=== PATIENT | female | born 1960 | race African-American/Black ===

== ENCOUNTER 2016-02-29 17:48 | Inpatient (IN) | payer BC ==
--- NOTE | 2016-02-29 18:30 | Emergency Department Report ---
Chief Complaint: Abdominal Pain Stated Complaint: STOMACH PAIN/VOMITING Time Seen by Provider: 02/29/16 18:26 - HPI History of Present Illness: Patient here reports abdominal pain and nausea and vomiting. She denies any fever or chills. Denies any urinary burning frequency or urgency. She said the pain started yesterday in her mid upper abdomen and left lower quadrant of abdomen. Pain is 6 out of 10. Denies any diarrhea. - ROS Review of Systems: all Systems are negative unless stated in HPI above. - Exam Vital Signs: Vital Signs 02/29/16 17:55 Temperature 98.8 F Pulse Rate 89 Respiratory 18 Rate Blood Pressure 159/93 O2 Sat by Pulse 97 Oximetry Physical Exam: Gen: This is a 55-year-old female well-nourished well-developed in no acute distress. Abdomen: Tender to palpate to mid abdomen and left lower quadrant. No Guarding or rebound tenderness. Normal bowel sounds in all quadrants MSE screening note: Focused history and physical exam performed. Due to findings the following was ordered:see mdm ED Medical Decision Making - Medical Decision Making Medical decision making: Patient seen by provider in triage area. Appropriate protocol activated and patient to main ED to be seen by physician. ED Disposition for MSE Condition: Stable Instructions: Abdominal Pain (ED)
[2016-02-29 18:56] LABS: Basophils % (Auto) 0.3 % (0.0-1.8); Eosinophils % (Auto) 0.5 % (0.0-4.3); Hemoglobin 15.2 gm/dl (10.1-14.3); Mean Corpuscular HGB Conc 33 % (30-34); Mean Corpuscular Hemoglobin 28 pg (28-32); Mean Corpuscular Volume 86 fl (79-97); Platelet Count 297 K/mm3 (140-440); Red Blood Count 5.34 M/mm3 (3.65-5.03); Red Cell Distribution Width 13.7 % (13.2-15.2); White Blood Count 13.4 K/mm3 (4.5-11.0)
[2016-02-29 19:10] LABS: Alanine Aminotransferase 16 units/L (7-56); Albumin 4.5 g/dL (3.9-5); Albumin/Globulin Ratio 1.3 %; Alkaline Phosphatase 81 units/L (35-129); Anion Gap 19 mmol/L; Bilirubin,Total 0.8 mg/dL (0.1-1.2); Blood Urea Nitrogen 16 mg/dL (7-17); Calcium 9.4 mg/dL (8.4-10.2); Carbon Dioxide 28 mmol/L (22-30); Chloride 96.6 mmol/L (98-107); Glucose 112 mg/dL (65-100); Lipase 23 units/L (13-60); Potassium 3.9 mmol/L (3.6-5.0); Sodium 140 mmol/L (137-145)
[2016-02-29 19:11] LABS: Bilirubin,Direct < 0.2 mg/dL (0-0.2); Bilirubin,Indirect 0.6 mg/dL
[2016-02-29 19:14] LABS: Bacteria,Urine 1+ /HPF (Negative); Bilirubin,Urine NEG (Negative); Blood,Urine SM (Negative); Ketones,Urine 20 mg/dL (Negative); Leukocyte Esterase,Urine LG (Negative); Mucus,Urine FEW /HPF; Nitrite,Urine NEG (Negative); Urobilinogen,Urine < 2.0 mg/dL (<2.0)
[2016-02-29] MEDS ORDERED: MORPHINE IV ONE (21:35)
[2016-02-29] MEDS ORDERED: ZOFRAN IV ONE (21:35)
[2016-02-29] MEDS ORDERED: PEPCID IV ONE (21:35)
--- NOTE | 2016-02-29 21:36 | Emergency Department Report ---
ED Abdominal Pain HPI - General Chief Complaint: Abdominal Pain Stated Complaint: STOMACH PAIN/VOMITING Time Seen by Provider: 02/29/16 18:33 Source: patient Mode of arrival: Ambulatory Limitations: No Limitations - History of Present Illness Initial Comments: Primary care Dr.: Dr. Jones This is a 55-year-old female, previously unknown to me. May have a past medical history of diverticulosis/diverticulitis. She presents to the ER complaining of abdominal pain. The abdominal pain started in the suprapubic and left lower quadrant region, and radiated up to her left lateral abdominal region and into her epigastric region. The pain started yesterday. It is sharp. It increases with palpation and range of motion. Decreases with rest. Positive nausea and vomiting. Positive dysuria. The patient denies chest pain per se, but does complain of mild epigastric discomfort. This does not radiate to the back, arms or neck. There is no diaphoresis. There is no leg pain. There is no leg swelling. No recent trips greater than 4 hours. No recent hospital admissions. MD Complaint: abdominal pain -: Gradual Location: LLQ, epigastric, L flank Radiation: epigastric, L flank Severity: moderate Quality: cramping, aching Consistency: intermittent Improves With: rest Worsens With: movement Associated Symptoms: nausea, dysuria - Related Data Home Medications Medication Instructions Recorded Confirmed Last Taken Montelukast [Singulair] 10 mg PO QPM 06/15/15 02/29/16 Unknown Previous Rx's Medication Instructions Recorded Last Taken Type Ciprofloxacin [Ciprofloxacin ORAL 500 mg PO Q12H #20 ml 06/15/15 Unknown Rx LIQ] HYDROcodone/APAP 5-325 [[place] 1 each PO Q4HR PRN #15 tablet 06/15/15 Unknown Rx 5/325] Ibuprofen [Motrin] 600 mg PO Q6H PRN #20 tablet 06/15/15 Unknown Rx metroNIDAZOLE [Flagyl] 500 mg PO Q8HR #21 tablet 06/15/15 Unknown Rx Allergies Allergy/AdvReac Type Severity Reaction Status Date / Time No Known Allergies Allergy Verified 06/15/15 07:52 ED Review of Systems ROS: Stated complaint: STOMACH PAIN/VOMITING Other details as noted in HPI Constitutional: malaise, other Eyes: denies: vision change ENT: denies: epistaxis Respiratory: see HPI Cardiovascular: as per HPI Gastrointestinal: abdominal pain Genitourinary: denies: urgency, dysuria Musculoskeletal: back pain Skin: denies: lesions Neurological: weakness. denies: headache Psychiatric: anxiety ED Past Medical Hx - Past Medical History Hx Asthma: Yes - Social History Smoking Status: Never Smoker Substance Use Type: Alcohol - Medications Home Medications: Home Medications Medication Instructions Recorded Confirmed Last Taken Type Ciprofloxacin [Ciprofloxacin ORAL 500 mg PO Q12H #20 ml 06/15/15 02/29/16 Unknown Rx LIQ] HYDROcodone/APAP 5-325 [[place] 1 each PO Q4HR PRN #15 tablet 06/15/15 02/29/16 Unknown Rx 5/325] Ibuprofen [Motrin] 600 mg PO Q6H PRN #20 tablet 06/15/15 02/29/16 Unknown Rx Montelukast [Singulair] 10 mg PO QPM 06/15/15 02/29/16 Unknown History metroNIDAZOLE [Flagyl] 500 mg PO Q8HR #21 tablet 06/15/15 02/29/16 Unknown Rx ED Physical Exam - General Limitations: No Limitations General appearance: alert, in no apparent distress - Head Head exam: Present: atraumatic, normocephalic - Eye Eye exam: Present: normal appearance, EOMI. Absent: nystagmus - ENT ENT exam: Present: normal exam, normal orophraynx, mucous membranes moist, normal external ear exam - Neck Neck exam: Present: normal inspection, full ROM. Absent: tenderness, meningismus - Respiratory Respiratory exam: Present: normal lung sounds bilaterally. Absent: respiratory distress, wheezes, rales, rhonchi, stridor, chest wall tenderness - Cardiovascular Cardiovascular Exam: Present: regular rate, normal rhythm, normal heart sounds. Absent: bradycardia, tachycardia, irregular rhythm, systolic murmur, diastolic murmur, rubs, gallop - GI/Abdominal GI/Abdominal exam: Present: soft, tenderness, normal bowel sounds. Absent: distended, guarding, rebound, rigid, pulsatile mass - Extremities Exam Extremities exam: Present: normal inspection, full ROM, normal capillary refill. Absent: tenderness, pedal edema, joint swelling, calf tenderness - Back Exam Back exam: Present: normal inspection, full ROM. Absent: tenderness, CVA tenderness (R), CVA tenderness (L), muscle spasm, paraspinal tenderness, vertebral tenderness - Neurological Exam Neurological exam: Present: alert, oriented X3, other (Extraocular movements intact. Tongue midline. No facial droop. Facial sensation intact to light touch in the V1, V2, V3 distribution bilaterally. 5 and 5 strength in 4 extremities.. Sensation is intact to light touch in 4 extremities.). Absent: motor sensory deficit - Psychiatric Psychiatric exam: Present: normal affect, normal mood - Skin Skin exam: Present: warm, dry, intact, normal color. Absent: rash ED Course Vital Signs 02/29/16 02/29/16 03/01/16 17:55 22:45 02:47 Temperature 98.8 F 100.2 F H Pulse Rate 89 82 82 Pulse Rate [ Brachial] Respiratory 18 16 20 Rate Blood Pressure 159/93 121/61 Blood Pressure [Left Arm] Blood Pressure 123/72 [Left] O2 Sat by Pulse 97 94 100 Oximetry 03/01/16 03/01/16 03/01/16 02:50 02:55 03:00 Temperature Pulse Rate 77 71 74 Pulse Rate [ Brachial] Respiratory 18 18 18 Rate Blood Pressure 124/60 123/66 125/58 Blood Pressure [Left Arm] Blood Pressure [Left] O2 Sat by Pulse 98 98 99 Oximetry 03/01/16 03/01/16 03/01/16 03:15 03:30 03:45 Temperature Pulse Rate 60 57 L 57 L Pulse Rate [ Brachial] Respiratory 18 16 16 Rate Blood Pressure 116/49 123/63 126/64 Blood Pressure [Left Arm] Blood Pressure [Left] O2 Sat by Pulse 99 98 97 Oximetry 03/01/16 03/01/16 03/01/16 04:00 04:15 04:30 Temperature Pulse Rate 60 59 L 62 Pulse Rate [ Brachial] Respiratory 16 17 17 Rate Blood Pressure 124/62 127/65 119/63 Blood Pressure [Left Arm] Blood Pressure [Left] O2 Sat by Pulse 98 98 96 Oximetry 03/01/16 03/01/16 03/01/16 04:45 05:00 06:11 Temperature 99 F 98.5 F Pulse Rate 66 66 Pulse Rate [ Brachial] Respiratory 16 16 20 Rate Blood Pressure 118/64 116/60 Blood Pressure 110/61 [Left Arm] Blood Pressure [Left] O2 Sat by Pulse 96 99 94 Oximetry 03/01/16 03/01/16 03/01/16 08:00 08:04 17:00 Temperature 98.8 F 98.2 F Pulse Rate Pulse Rate [ 78 63 Brachial] Respiratory 18 18 Rate Blood Pressure Blood Pressure 114/59 154/70 [Left Arm] Blood Pressure [Left] O2 Sat by Pulse 94 94 98 Oximetry 03/01/16 03/02/16 23:17 00:47 Temperature 98.2 F 98.2 F Pulse Rate Pulse Rate [ 67 99 H Brachial] Respiratory 20 20 Rate Blood Pressure Blood Pressure 148/67 180/81 [Left Arm] Blood Pressure [Left] O2 Sat by Pulse 98 99 Oximetry - Reevaluation(s) Reevaluation #1: 02/29/16 23:06 Differential diagnosis: Gastritis, pancreatitis, pyelonephritis, colitis, diverticulitis, acute coronary syndrome Assessment and plan: 55-year-old female with migratory abdominal pain that started in the left lower quadrant, then moved to the left lateral aspect of the abdominal region and now epigastric. She is somewhat tender in all of the aforementioned. She also endorses irritative urinary symptoms. Her urinalysis suggested urinary tract infection. There are no pulmonary embolus or DVT risk factors, she is low risk by well's criteria. I think acute coronary syndrome is very unlikely, her symptoms have been present for greater than 8 hours, troponin is negative 1 (as per the [employer] clinical policy, myocardial infarction may be excluded with 1 set of cardiac enzymes if symptoms have been present for greater than 8 hours.) She was treated symptomatically. Her EKG was morphologically within normal limits, she is low risk by [place] score, and she is low risk by heart score. A CT scan of the abdomen and pelvis has been performed, the interpretation is currently pending. Reevaluation #2: 02/29/16 23:30 ct scan shows llq smegalian hernia, with proximal ductal obstruction. Radiologist is uncertain if the patient is incarcerated versus strangulated. Nasogastric tube is ordered. Lactic acid is ordered. Gen. surgery was paged. Reevaluation #3: 02/29/16 23:37 The general surgeon, Dr earl. is going to take the patient to the operating room. Requests antibiotic therapy. Medical decision-makin-year-old female with incarcerated versus strangulated hernia with leukocytosis, tenderness, small bowel obstruction required emergent surgical intervention. ED Medical Decision Making - Lab Data Result diagrams: 03/01/16 06:04 03/01/16 06:04 Vital Signs 02/29/16 02/29/16 17:55 22:45 Temperature 98.8 F Pulse Rate 89 82 Respiratory 18 16 Rate Blood Pressure 159/93 Blood Pressure 123/72 [Left] O2 Sat by Pulse 97 94 Oximetry Lab Results 02/29/16 02/29/16 02/29/16 Range/Units 18:35 18:35 18:35 WBC 13.4 H (4.5-11.0) K/mm3 RBC 5.34 H (3.65-5.03) M/mm3 Hgb 15.2 H (10.1-14.3) gm/dl Hct 46.0 H (30.3-42.9) % MCV 86 (79-97) fl MCH 28 (28-32) pg MCHC 33 (30-34) % RDW 13.7 (13.2-15.2) % Plt Count 297 (140-440) K/mm3 Lymph % (Auto) 11.1 L (13.4-35.0) % [place] % (Auto) 5.8 (0.0-7.3) % Eos % (Auto) 0.5 (0.0-4.3) % Baso % (Auto) 0.3 (0.0-1.8) % Lymph # 1.5 (1.2-5.4) K/mm3 [place] # 0.8 (0.0-0.8) K/mm3 Eos # 0.1 (0.0-0.4) K/mm3 Baso # 0.0 (0.0-0.1) K/mm3 Seg Neutrophils % 82.3 H (40.0-70.0) % Seg Neutrophils # 11.0 H (1.8-7.7) K/mm3 Sodium 140 (137-145) mmol/L Potassium 3.9 (3.6-5.0) mmol/L Chloride 96.6 L (98-107) mmol/L Carbon Dioxide 28 (22-30) mmol/L Anion Gap 19 mmol/L BUN 16 (7-17) mg/dL Creatinine 1.0 (0.7-1.2) mg/dL Estimated GFR 57 ml/min BUN/Creatinine Ratio 16.00 % Glucose 112 H (65-100) mg/dL Calcium 9.4 (8.4-10.2) mg/dL Total Bilirubin 0.8 (0.1-1.2) mg/dL Direct Bilirubin < 0.2 (0-0.2) mg/dL Indirect Bilirubin 0.6 mg/dL AST 19 (5-40) units/L ALT 16 (7-56) units/L Alkaline Phosphatase 81 (35-129) units/L Troponin T (0.00-0.029) ng/mL Total Protein 8.0 (6.3-8.2) g/dL Albumin 4.5 (3.9-5) g/dL Albumin/Globulin Ratio 1.3 % Amylase 70 (27-131) units/L Lipase 23 (13-60) units/L Urine Color (Yellow) Urine Turbidity (Clear) Urine pH (5.0-7.0) Ur Specific [place] (1.003-1.030) Urine Protein (Negative) mg/dL Urine Glucose (UA) (Negative) mg/dL Urine Ketones (Negative) mg/dL Urine Blood (Negative) Urine Nitrite (Negative) Urine Bilirubin (Negative) Urine Urobilinogen (<2.0) mg/dL Ur Leukocyte Esterase (Negative) Urine WBC (Auto) (0.0-6.0) /HPF Urine RBC (Auto) (0.0-6.0) /HPF U Epithel Cells (Auto) (0-13.0) /HPF Urine Bacteria (Auto) (Negative) /HPF Ur Transition Epith Cell /HPF Urine Mucus /HPF 02/29/16 02/29/16 Range/Units 18:35 18:41 WBC (4.5-11.0) K/mm3 RBC (3.65-5.03) M/mm3 Hgb (10.1-14.3) gm/dl Hct (30.3-42.9) % MCV (79-97) fl MCH (28-32) pg MCHC (30-34) % RDW (13.2-15.2) % Plt Count (140-440) K/mm3 Lymph % (Auto) (13.4-35.0) % [place] % (Auto) (0.0-7.3) % Eos % (Auto) (0.0-4.3) % Baso % (Auto) (0.0-1.8) % Lymph # (1.2-5.4) K/mm3 [place] # (0.0-0.8) K/mm3 Eos # (0.0-0.4) K/mm3 Baso # (0.0-0.1) K/mm3 Seg Neutrophils % (40.0-70.0) % Seg Neutrophils # (1.8-7.7) K/mm3 Sodium (137-145) mmol/L Potassium (3.6-5.0) mmol/L Chloride (98-107) mmol/L Carbon Dioxide (22-30) mmol/L Anion Gap mmol/L BUN (7-17) mg/dL Creatinine (0.7-1.2) mg/dL Estimated GFR ml/min BUN/Creatinine Ratio % Glucose (65-100) mg/dL Calcium (8.4-10.2) mg/dL Total Bilirubin (0.1-1.2) mg/dL Direct Bilirubin (0-0.2) mg/dL Indirect Bilirubin mg/dL AST (5-40) units/L ALT (7-56) units/L Alkaline Phosphatase (35-129) units/L Troponin T < 0.010 (0.00-0.029) ng/mL Total Protein (6.3-8.2) g/dL Albumin (3.9-5) g/dL Albumin/Globulin Ratio % Amylase (27-131) units/L Lipase (13-60) units/L Urine Color Yellow (Yellow) Urine Turbidity Slightly-cloudy (Clear) Urine pH 5.0 (5.0-7.0) Ur Specific [place] 1.025 (1.003-1.030) Urine Protein 30 mg/dl (Negative) mg/dL Urine Glucose (UA) Neg (Negative) mg/dL Urine Ketones 20 (Negative) mg/dL Urine Blood Sm (Negative) Urine Nitrite Neg (Negative) Urine Bilirubin Neg (Negative) Urine Urobilinogen < 2.0 (<2.0) mg/dL Ur Leukocyte Esterase Lg (Negative) Urine WBC (Auto) 135.0 H (0.0-6.0) /HPF Urine RBC (Auto) 10.0 (0.0-6.0) /HPF U Epithel Cells (Auto) 10.0 (0-13.0) /HPF Urine Bacteria (Auto) 1+ (Negative) /HPF Ur Transition Epith Cell 1 /HPF Urine Mucus Few /HPF - EKG Data 02/29/16 23:08 Normal sinus, 73 beats per minute, normal intervals, normal axis, not morphologically consistent with STEMI. Unremarkable EKG - Radiology Data Radiology results: image reviewed interpreted by me: X-ray chest within normal limits. X-ray chest within normal limits. Critical care attestation.: If time is entered above; I have spent that time in minutes in the direct care of this critically ill patient, excluding procedure time. ED Disposition Clinical Impression: Small bowel obstruction Disposition: OP ADMITTED IP TO THIS HOSP Is pt being admited?: Yes Condition: Good
[2016-02-29] MEDS ORDERED: NACL 0.9% 500 ML IV SCH (22:00)
[2016-02-29] MEDS ORDERED: XYLOCAINE TOPICAL 4% TP ONE (23:27)
[2016-02-29] MEDS ORDERED: LIDOCAINE VISCOUS 2% PO ONE (23:27)
--- NOTE | 2016-02-29 23:29 | Cat Scan Report ---
FINAL REPORT EXAM: CT ABDOMEN PELVIS W CON HISTORY: abd pain n/v TECHNIQUE: Spiral CT scanning of the abdomen and pelvis after the uneventful administration of IV contrast. Multiplanar reformations. 100 mL Omnipaque IV. PRIORS: CT pelvis, 04 August 2015. FINDINGS: Abdomen: Visualized lung bases grossly unremarkable. No radiopaque gallstones. Liver shows diffusely decreased attenuation without focal abnormality. Spleen without significant abnormality. Pancreas without significant abnormality. Asymmetrically small and atrophic left kidney. Right kidney grossly unremarkable. Adrenal glands without significant abnormality. Pelvis: Spigelian hernia in left lower quadrant containing short segment or knuckle of mid small bowel, with some bowel wall thickening and mesenteric fat stranding. Multiple loops of mildly dilated small bowel proximal to this point containing gas and fluid. Remainder of visualized bowel grossly unremarkable. Appendix within normal limits. Very small amount of free fluid in the pelvis. No discrete abscess. Abdominal aorta non-aneurysmal. IMPRESSION: 1. Findings compatible with mechanical small bowel obstruction secondary to spigelian hernia in the left lower quadrant containing at least incarcerated segment of small bowel, with some associated inflammatory change. Early strangulation not completely excluded. Clinical correlation and followup to resolution advised. 2. Findings compatible with fatty infiltration in the liver. 3. Small and atrophic, left kidney. No apparent pneumatosis. Dr. Daigle discussed results with Dr. Marrufo on 29 February 2016 at approximately 2325 hours EST.
[2016-02-29] MEDS ORDERED: ZOSYN/NS 4.5GM/100ML 100 ML IV ONE (23:35)
--- NOTE | 2016-02-29 23:36 | Admit Criteria Form ---
Admission Criteria Documentation: ABDOMINAL PAIN Clinical Indications for Admission to Inpatient Care (Place 'X' for any and all applicable criteria): Admission is indicated for ANY ONE of the following(1)(2)(3)(4)(5): [X ]I. Inpatient admission required rather than observation care (Also use Abdominal Pain: Observation Care, as appropriate) because of ANY ONE of the following: [ ]a) Severe pain requiring acute inpatient management [ ]b) Identification of etiology/finding that requires inpatient care (eg, aortic dissection, free air) [ ]c) Absent bowel sounds with complete ileus(6) [ ]d) Suspected toxic megacolon [ ]e) Severe electrolyte abnormalities requiring inpatient care [ ]f) High fever or infection requiring inpatient admission as indicated by ANY ONE of following(7)(8): [ ] i) Appropriate outpatient or observational care antimicrobial treatment unavailable, not effective, or not feasible [ ] ii) Documented bacteremia [ ] iii) Temperature > 104.9 degrees F (oral) [ ] iv) T >103.1 F (oral) or < 96.8 F(rectal) that does not respond to all emergency treatment measures [ X]g) Signs of intestinal obstruction [B] [ ]h) Hemodynamic instability [ ]i) IV fluid to replace significant ongoing losses (greater than 3 L/m2 per day) (12)(13) [ ]j) Percutaneous or open drainage (eg, abscess, biliary tract ) procedures [ ]k) Parenteral nutrition regimen that must be implemented on inpatient basis [ ]l) Other condition,treatment or monitoring requiring inpatient admission. [ ]II. Peritoneal signs present [ ]III. Surgery needed that cannot be performed on an ambulatory basis. [ ]IV. Evaluation requires patient to not eat or drink for extended period ( eg, more than 24 hours). [ ]V. Contraindications and/or Inappropriate clinical situations for Observational Care in patients with abdominal pain, when ANY ONE of the following is required: [ ]a) Thorough evaluation is required to prevent catastrophic events due to delays in diagnosing (e.g.Mesenteric ischemia) 1,3 [ ]b) Patient with severe pathology or with chronic symptoms unlikely to improve in the ED stay (3) [ ]. General contraindications and/or Inappropriate clinical situations for Observational Care in patients with abdominal pain, when ANY ONE of the following is required: [ ]a) Prediction of prolongation of LOS based on ANY ONE of the following may be considered as a contraindication for observational care 2, 3, 4, 5, 6, 7, 8, 9, 10, 11 [ ]i) Age > 65 yrs. [ ]ii) Patient arriving by ambulance [ ]iii) Patient with high acuity [ ]iv) Patient requiring vital sign monitoring [ ]v) Patient on IV medication [ ]b) Systolic blood pressures 180mmHg 3,12 [ ]c) Patient with altered mental status including delirium and other alteration of consciousness, (3) [ ]d) Patient whose discharge disposition will be to a care home home or rehabilitation home should not be managed in Emergency Department Observation Unit. CMS rule requires 3 days hospital stay before such placement.3,13 [ ]e) Patient with failure to thrive due to broad array of etiologies 3,16,17 [ ]f) Inability to ambulate 3,14 Extended stay beyond goal length of stay may be needed for(2)(3): [ ]a) Persistent abdominal pain with suspected intra-abdominal process [ ]b) Diagnosed condition requiring continued stay (e.g., pancreatitis, complicated diverticulitis) [ ]c) Surgery (e.g., colectomy) The original [facility] content created by [employer] has been revised. The portions of the content which have been revised are identified through the use of italic text or in bold, and [facility] has neither reviewed nor approved the modified material.All other unmodified content is copyright [facility]. Please see references footnoted in the original [facility] edition 2016 Admission Criteria Met: Yes
[2016-03-01] MEDS ORDERED: DILAUDID ONE (00:39)
[2016-03-01] MEDS ORDERED: DIPRIVAN 10 MG/ML IV ONE (00:39)
[2016-03-01] MEDS ORDERED: REGLAN ONE (01:20)
[2016-03-01] MEDS ORDERED: MARCAINE 0.5% INFILTRATI ONE ×2 (01:49)
[2016-03-01] MEDS ORDERED: NACL 0.9% IR ONE (01:49)
[2016-03-01] MEDS ORDERED: ZOFRAN IV ONE (02:11)
--- NOTE | 2016-03-01 02:12 | Anesthesia Consultation ---
Anesthesia Consult and Med Hx Date of service: 03/01/16 - Airway Anesthetic Teeth Evaluation: Good, Dentures (upper) ROM Head & Neck: Adequate Mental/Hyoid Distance: Adequate Mallampati Class: Class II Intubation Access Assessment: Probably Good - Pulmonary Exam CTA: Yes - Cardiac Exam Cardiac Exam: RRR - Pre-Operative Health Status ASA Pre-Surgery Classification: ASA2, Emergency Proposed Anesthetic Plan: General - Pulmonary Hx Smoking: No Hx Asthma: Yes - Cardiovascular System Hx Hypertension: No Hx Coronary Artery Disease: No - Central Nervous System Hx Seizures: No CVA: No - Endocrine Hx Renal Disease: No Hx Cirrhosis: No Hx Insulin Dependent Diabetes: No Hx Thyroid Disease: No Hx Hyperthyroidism: No - Other Systems Hx Cancer: No Hx Obesity: Yes
--- NOTE | 2016-03-01 02:12 | Anesthesia Day of Surgery ---
Anesthesia Day of Surgery - Day of Surgery Patient Examined: Yes Patient H&P Reviewed: Yes Patient is NPO: Yes
--- NOTE | 2016-03-01 02:13 | Post Anesthesia Evaluation ---
- Post Anesthesia Evaluation Patient Participated: Yes Airway Patent: Yes Stable Respiratory Function: Yes Nausea/Vomiting: No Temp > 96.8F: Yes Pain Manageable: Yes Adequeate Hydration: Yes Anesthesia Complications: No Block Receding Appropriately: Not Applicable Patient on Ventilator: No
[2016-03-01] MEDS ORDERED: XYLOCAINE MPF 2% ONE (02:17)
[2016-03-01] MEDS ORDERED: ZEMURON IV ONE (02:18)
[2016-03-01] MEDS ORDERED: NORMODYNE IV ONE (02:18)
[2016-03-01] MEDS ORDERED: QUELICIN ONE (02:18)
[2016-03-01] MEDS ORDERED: ROBINUL ONE (02:20)
[2016-03-01] MEDS ORDERED: BLOXIVERZ ONE (02:20)
[2016-03-01] MEDS ORDERED: ZOFRAN IV PRN (02:29)
[2016-03-01] MEDS ORDERED: LACTATED RINGERS 1,000 ML ONE (02:38)
[2016-03-01] MEDS ORDERED: DECADRON ONE (02:38)
[2016-03-01] MEDS ORDERED: ZOFRAN ONE (02:39)
[2016-03-01] MEDS ORDERED: TORADOL ONE (02:39)
[2016-03-01] MEDS ORDERED: NACL 0.9% 500 ML IV ONE (03:00)
[2016-03-01] MEDS ORDERED: NACL 0.9% 1000 ML 1,000 ML ONE ×2 (03:49)
--- NOTE | 2016-03-01 03:58 | History and Physical Report ---
ADMITTING DIAGNOSIS: Rule out incarcerated spigelian hernia with bowel obstruction. HISTORY OF PRESENT ILLNESS: The patient is a pleasant 55-year-old female who presents to Emergency Room with recent onset of left lower quadrant abdominal pain accompanied by nausea and vomiting. PAST MEDICAL HISTORY: Pertinent for asthma. PAST SURGICAL HISTORY: Negative. ALLERGIES: No known allergies. MEDICATIONS: No medications. FAMILY HISTORY: Negative. SOCIAL HISTORY: Occasional ethanol intake. Denies any smoking. REVIEW OF SYSTEMS: Noncontributory. PHYSICAL EXAMINATION: GENERAL: At this time reveals the patient to be awake, alert, cooperative, in moderate discomfort, but in no acute distress. NG tube is in place. VITAL SIGNS: Show her to be afebrile with a temperature of 98.8, blood pressure is 123/72, pulse of 82, respirations of 16. HEENT: Pupils are equal and reactive to light and accommodation. Sclerae is nonicteric. NECK: Supple, no thyromegaly or adenopathy. CHEST: Lungs clear to auscultation and percussion. HEART: Normal sinus rhythm. No gross murmurs. ABDOMEN: Examination of the abdomen revealed to be moderately obese. The abdomen itself is soft, but there is localized left lower quadrant tenderness by the rectus muscle lateral border. There is what I think to feel as bowel loop that is palpable in this area, with localized tenderness. Bowel sounds are hypoactive. EXTREMITIES: Show full range of motion x 4. NEUROLOGIC: Grossly within normal limits. LABORATORY DATA: Lab work at present includes a CBC which shows a white count of 13.4, H and H is 15.2 and 46. Electrolytes were essentially within normal limits. Amylase is 70, lipase is 23. CT scan of the abdomen has been performed. The CT shows a spigelian hernia in the left lower quadrant containing a short segment or knuckle of mid small bowel with some bowel wall thickening and mesenteric fat stranding. Multiple loops of mildly dilated small bowel proximal to this point. These findings are compatible with possible incarcerated spigelian hernia causing small-bowel obstruction. IMPRESSION: At this time is as above. PLAN: Plan is to proceed with diagnostic laparoscopy, possible laparoscopic hernia repair if hernia is able to be successfully reduced and small bowel is viable. If not, then we will convert to exploratory laparotomy and hernia repair with possible bowel resection. Risks, indications, and complications have been reviewed with the patient who understands and has signed her consent. We will proceed with emergency surgery at this time. JOB# [id number]
[2016-03-01] MEDS: D5W/0.45% NACL/KCL 30 MEQ 1,000 ML IV SCH ×2 (04:30→13:52)
--- NOTE | 2016-03-01 04:38 | Operative Report ---
PREOPERATIVE DIAGNOSIS: Rule out incarcerated spigelian hernia containing a loop of small bowel and causing bowel obstruction. POSTOPERATIVE DIAGNOSIS: Rule out incarcerated spigelian hernia containing a loop of small bowel and causing bowel obstruction. PROCEDURE: 1. Emergency diagnostic laparoscopy. 2. Reduction of incarcerated small bowel hernia. 3. Laparoscopic spigelian hernia repair with mesh. SURGEON: Pablito Bruno MD. ANESTHESIA: General. ESTIMATED BLOOD LOSS: Minimal. DRAINS: No drains. COMPLICATIONS: None. DESCRIPTION OF PROCEDURE: The patient was taken to the operating room, prepped and draped in usual sterile fashion. Veress needle was inserted and CO2 insufflation begun. A 5 mm trocar was then inserted and camera inserted. Upon inspecting the abdomen, indeed a loop of small bowel was noted to be incarcerated within spigelian in the left lower quadrant of the abdomen. [place] was used to slowly pull the decompressed loop along with external manual pressure on the abdominal wall. The hernia was fortunately able to be eventually reduced. The small bowel was then carefully inspected. The bowel initially was a little dusky, but it was irrigated and observed. Eventually, the color began returning and clearly visible peristalsis was noted. A 12 mm trocar was inserted through the fascial defect. A dual Parietex mesh was then placed through the 12 mm port and then slowly tacked back to the peritoneal wall. Tackers were used to tack the mesh in its entire circumference. also tacked with a second internal ring of mary. The area was then inspected and noted to be well covered. No other defects noted. A small bowel was once again inspected and noted to be pink and viable. The other two 5 mm ports were then removed under direct visualization. No bleeding or oozing noted. The final 5 mm port was used to expel the CO2 and the trocar removed. The skin and all port sites were closed with subcuticular 4-0 Vicryl. A 0.5% Marcaine was infiltrated over the port site for postoperative pain relief. The patient tolerated the procedure well and left OR in stable condition. JOB# [id number] FP/NTS
[2016-03-01 06:49] LABS: Anion Gap 19 mmol/L; Blood Urea Nitrogen 12 mg/dL (7-17); Calcium 7.6 mg/dL (8.4-10.2); Carbon Dioxide 22 mmol/L (22-30); Chloride 107.5 mmol/L (98-107); Glucose 151 mg/dL (65-100); Potassium 4.2 mmol/L (3.6-5.0); Sodium 144 mmol/L (137-145)
[2016-03-01 06:54] LABS: Hematocrit 39.4 % (30.3-42.9); Hemoglobin 12.6 gm/dl (10.1-14.3); Mean Corpuscular HGB Conc 32 % (30-34); Mean Corpuscular Hemoglobin 28 pg (28-32); Mean Corpuscular Volume 89 fl (79-97); Platelet Count 255 K/mm3 (140-440); Red Blood Count 4.45 M/mm3 (3.65-5.03); Red Cell Distribution Width 14.2 % (13.2-15.2); White Blood Count 12.8 K/mm3 (4.5-11.0)
--- NOTE | 2016-03-01 08:13 | XRay Report ---
AP CHEST: HISTORY: Substernal chest pain AP view of the chest demonstrates a normal mediastinal and cardiac contour with clear lungs and normal bony and soft tissue structures. IMPRESSION: Unremarkable AP chest.
[2016-03-01 08:32] LABS: Basophils % (Manual) 0 % (0.0-1.8); Blastocytes % (Manual) 0 %; Eosinophils % (Manual) 0 % (0.0-4.3)
[2016-03-01 08:33] LABS: Anisocytosis Few; Diff Status Complete
[2016-03-01] MEDS: DILAUDID IV PRN ×2 (09:15→22:55)
[2016-03-01] MEDS: PEPCID IV SCH ×2 (10:00→22:58)
--- NOTE | 2016-03-01 11:00 | Progress Note ---
Assessment and Plan POD #1 Pt feeling well without compl. Abd soft. stable d/c ng d/c lucio ambulate down halls f/u h/h in am Selected Entries 03/01/16 03/01/16 08:00 08:04 Temperature 98.8 F Pulse Rate [ 78 Brachial] O2 Sat by Pulse 94 Oximetry Blood Pressure 114/59 [Left Arm] Laboratory Tests 03/01/16 03/01/16 06:04 06:04 WBC 12.8 H Hgb 12.6 Hct 39.4 D Sodium 144 Potassium 4.2 Chloride 107.5 H Carbon Dioxide 22 BUN 12 Creatinine 0.8 Objective Vital Signs - 12hr 03/01/16 03/01/16 03/01/16 02:47 02:50 02:55 Temperature 100.2 F H Pulse Rate 82 77 71 Pulse Rate [ Brachial] Respiratory 20 18 18 Rate Blood Pressure 121/61 124/60 123/66 Blood Pressure [Left Arm] O2 Sat by Pulse 100 98 98 Oximetry 03/01/16 03/01/16 03/01/16 03:00 03:15 03:30 Temperature Pulse Rate 74 60 57 L Pulse Rate [ Brachial] Respiratory 18 18 16 Rate Blood Pressure 125/58 116/49 123/63 Blood Pressure [Left Arm] O2 Sat by Pulse 99 99 98 Oximetry 03/01/16 03/01/16 03/01/16 03:45 04:00 04:15 Temperature Pulse Rate 57 L 60 59 L Pulse Rate [ Brachial] Respiratory 16 16 17 Rate Blood Pressure 126/64 124/62 127/65 Blood Pressure [Left Arm] O2 Sat by Pulse 97 98 98 Oximetry 03/01/16 03/01/16 03/01/16 04:30 04:45 05:00 Temperature 99 F Pulse Rate 62 66 66 Pulse Rate [ Brachial] Respiratory 17 16 16 Rate Blood Pressure 119/63 118/64 116/60 Blood Pressure [Left Arm] O2 Sat by Pulse 96 96 99 Oximetry 03/01/16 03/01/16 03/01/16 06:11 08:00 08:04 Temperature 98.5 F 98.8 F Pulse Rate Pulse Rate [ 78 Brachial] Respiratory 20 18 Rate Blood Pressure Blood Pressure 110/61 114/59 [Left Arm] O2 Sat by Pulse 94 94 94 Oximetry - Labs 03/01/16 06:04 03/01/16 06:04 Diabetes panel 03/01/16 Range/Units 06:04 Sodium 144 (137-145) mmol/L Potassium 4.2 (3.6-5.0) mmol/L Chloride 107.5 H (98-107) mmol/L Carbon Dioxide 22 (22-30) mmol/L BUN 12 (7-17) mg/dL Creatinine 0.8 (0.7-1.2) mg/dL Glucose 151 H (65-100) mg/dL Calcium 7.6 L D (8.4-10.2) mg/dL Calcium panel 03/01/16 Range/Units 06:04 Calcium 7.6 L D (8.4-10.2) mg/dL Pituitary panel 03/01/16 Range/Units 06:04 Sodium 144 (137-145) mmol/L Potassium 4.2 (3.6-5.0) mmol/L Chloride 107.5 H (98-107) mmol/L Carbon Dioxide 22 (22-30) mmol/L BUN 12 (7-17) mg/dL Creatinine 0.8 (0.7-1.2) mg/dL Glucose 151 H (65-100) mg/dL Calcium 7.6 L D (8.4-10.2) mg/dL Adrenal panel 03/01/16 Range/Units 06:04 Sodium 144 (137-145) mmol/L Potassium 4.2 (3.6-5.0) mmol/L Chloride 107.5 H (98-107) mmol/L Carbon Dioxide 22 (22-30) mmol/L BUN 12 (7-17) mg/dL Creatinine 0.8 (0.7-1.2) mg/dL Glucose 151 H (65-100) mg/dL Calcium 7.6 L D (8.4-10.2) mg/dL
[2016-03-02 06:36] LABS: Basophils % (Auto) 0.4 % (0.0-1.8); Eosinophils % (Auto) 1.2 % (0.0-4.3); Hematocrit 35.9 % (30.3-42.9); Hemoglobin 11.6 gm/dl (10.1-14.3); Mean Corpuscular HGB Conc 32 % (30-34); Mean Corpuscular Hemoglobin 29 pg (28-32); Mean Corpuscular Volume 89 fl (79-97); Platelet Count 220 K/mm3 (140-440); Red Blood Count 4.04 M/mm3 (3.65-5.03); Red Cell Distribution Width 14.4 % (13.2-15.2); White Blood Count 10.2 K/mm3 (4.5-11.0)
[2016-03-02] MEDS: MORPHINE IV PRN ×2 (08:10→17:25)
[2016-03-02] MEDS: D5W/0.45% NACL/KCL 30 MEQ 1,000 ML IV SCH ×2 (10:00→21:17)
[2016-03-02] MEDS: PEPCID IV SCH ×2 (10:00→23:34)
[2016-03-02 13:09] LABS: Hemoglobin 12.3 gm/dl (10.1-14.3); Mean Corpuscular HGB Conc 33 % (30-34); Mean Corpuscular Hemoglobin 29 pg (28-32); Mean Corpuscular Volume 90 fl (79-97); Platelet Count 227 K/mm3 (140-440); Red Blood Count 4.24 M/mm3 (3.65-5.03); Red Cell Distribution Width 14.6 % (13.2-15.2); White Blood Count 10.8 K/mm3 (4.5-11.0)
--- NOTE | 2016-03-02 15:29 | Progress Note ---
Assessment and Plan POD #2 Pt feeling well without compl. ambulating down halls. positive flatus Abd soft stable attempt cl liq diet he is aSelected Entries 03/02/16 07:40 Temperature 97.9 F Pulse Rate [ 61 Brachial] Respiratory 18 Rate Blood Pressure 153/60 [Left Arm] Laboratory Tests 03/02/16 03/02/16 06:05 12:49 WBC 10.2 10.8 Hgb 11.6 12.3 Hct 35.9 38.0 . Objective Vital Signs - 12hr 03/02/16 03/02/16 07:40 10:00 Temperature 97.9 F Pulse Rate [ 61 Brachial] Respiratory 18 Rate Blood Pressure 153/60 [Left Arm] O2 Sat by Pulse 94 95 Oximetry - Labs 03/02/16 12:49 03/01/16 06:04
[2016-03-03] MEDS: PEPCID IV SCH (09:54)
--- NOTE | 2016-03-03 14:58 | Progress Note ---
Assessment and Plan Pt feeling well without compl. pravin cl liq Abd soft surgically stable persistent HTN hospitalist hang advance to full liq diet may d/c today if diet pravin and cleared by hospitalist. reg diet at home in am rto wed Selected Entries 03/03/16 08:00 Temperature 98.1 F Blood Pressure 171/81 [Left Arm] Objective Vital Signs - 12hr 03/03/16 08:00 Temperature 98.1 F Pulse Rate [ 68 Brachial] Respiratory 16 Rate Blood Pressure 171/81 [Left Arm] O2 Sat by Pulse 97 Oximetry - Labs 03/02/16 12:49 03/01/16 06:04
--- NOTE | 2016-03-03 15:00 | Discharge Summary ---
Providers - Providers Date of Admission: 03/01/16 02:29 Attending physician: LUCINA HAHN 03/03/16 14:56 Consult to Physician [CONS] Routine Consulting Provider: EZEKIEL NAVA Reason For Exam: htn Primary care physician: JUNE CONDON Hospitalization Disposition: DISCHARGED TO HOME OR SELFCARE Core Measure Documentation - Palliative Care Palliative Care/ Comfort Measures: Not Applicable - Core Measures Any of the following diagnoses?: none Exam - Constitutional Vitals: Temp Pulse Resp BP Pulse Ox 98.1 F 68 16 171/81 97 03/03/16 08:00 03/03/16 08:00 03/03/16 08:00 03/03/16 08:00 03/03/16 08:00 Plan Activity: other (may d/c today if full liq pravin and cleared by hosptialist for high BP. reg diet at home in am. rto sat) Weight Bearing Status: Non-Weight Bearing Diet: other Wound: keep clean and dry Follow up with: LUCINA HAHN MD [Staff Physician] - 03/07/16
--- NOTE | 2016-03-03 17:28 | Consultation ---
History of Present Illness - Reason for Consult Consult date: 03/03/16 elevated BP Requesting physician: LUCINA HAHN - History of Present Illness MIss Smith is a 55 yo F who was admitted by Dr. Nunez incarcerated spigelian hernia which she had surgical repair. The postoperative period she had 2 isolated spikes of blood pressure with systolic of 171 earlier this morning and 180 on the ; her most recent blood pressure has a systolic of 140; he has no history of hypertension. No headache, no dizziness, no chest pain or shortness of breath Past History Past Medical History: No medical history Past Surgical History: hernia repair Social history: full code. denies: smoking, alcohol abuse, prescription drug abuse, IV drug use Family history: no significant family history Medications and Allergies Allergies Allergy/AdvReac Type Severity Reaction Status Date / Time No Known Allergies Allergy Verified 06/15/15 07:52 Home Medications Medication Instructions Recorded Confirmed Last Taken Type Ciprofloxacin [Ciprofloxacin ORAL 500 mg PO Q12H #20 ml 06/15/15 02/29/16 Unknown Rx LIQ] HYDROcodone/APAP 5-325 [[place] 1 each PO Q4HR PRN #15 tablet 06/15/15 02/29/16 Unknown Rx 5/325] Ibuprofen [Motrin] 600 mg PO Q6H PRN #20 tablet 06/15/15 02/29/16 Unknown Rx Montelukast [Singulair] 10 mg PO QPM 06/15/15 02/29/16 Unknown History metroNIDAZOLE [Flagyl] 500 mg PO Q8HR #21 tablet 06/15/15 02/29/16 Unknown Rx HYDROcodone/APAP 5-325 [[place] 1 each PO Q4HR PRN #20 tablet 03/03/16 Unknown Rx 5/325] Active Meds: Active Medications Famotidine (Pepcid) 20 mg IV BID [facility] Last Admin: 03/03/16 09:54 Dose: 20 mg Hydromorphone HCl (Dilaudid) 0.5 mg IV Q10MIN PRN PRN Reason: Pain , Severe (7-10) Stop: 03/04/16 02:12 Last Admin: 03/01/16 22:55 Dose: 0.5 mg Potassium Chloride/Dextrose/Sod Cl (D5w/0.45% Nacl/Kcl 30 Meq) 1,000 mls @ 125 mls/hr IV DIRECT [facility] Last Admin: 03/02/16 21:17 Dose: 125 mls/hr Morphine Sulfate (Morphine) 2 mg IV Q3H PRN PRN Reason: Pain, Moderate (4-6) Last Admin: 03/02/16 17:25 Dose: 2 mg Ondansetron HCl (Zofran) 4 mg IV Q4H PRN PRN Reason: N/V unrelieved by Reglan Review of Systems All systems: negative Constitutional: no weight loss, no weight gain, no fever, no chills Ears, nose, mouth and throat: no ear pain, no ear discharge, no tinnitis, no decreased hearing Breasts: normal Cardiovascular: no chest pain, no orthopnea, no palpitations, no rapid/ irregular heart beat Respiratory: no cough, no cough with sputum, no excessive sputum, no hemoptysis , no shortness of breath Gastrointestinal: no abdominal pain, no nausea, no vomiting, no diarrhea, no constipation Genitourinary Female: no urinary frequency, no urgency Musculoskeletal: no neck stiffness, no neck pain, no shooting arm pain, no arm numbness/tingling Integumentary: no rash, no pruritis, no redness Neurological: no head injury, no transient paralysis, no paralysis Psychiatric: no change in sleep habits Endocrine: no cold intolerance, no heat intolerance, no polyphagia, no excessive thirst Hematologic/Lymphatic: no easy bruising, no easy bleeding Exam - Constitutional Vitals: Temp Pulse Resp BP Pulse Ox 98.1 F 68 16 171/81 97 03/03/16 08:00 03/03/16 08:00 03/03/16 08:00 03/03/16 08:00 03/03/16 08:00 General appearance: Present: no acute distress, well-nourished - EENT Eyes: Present: PERRL, EOM intact. Absent: scleral icterus, conjunctival injection ENT: hearing intact, clear oral mucosa, no oropharyngeal erythema, no poor dentition - Respiratory Respiratory effort: normal Respiratory: negative: CTA, diminished, rales, rhonchi, wheezing - Cardiovascular Rhythm: regular Heart Sounds: Present: S1 & S2. Absent: gallop - Extremities Extremities: no ischemia, pulses intact, pulses symmetrical, No edema Peripheral Pulses: within normal limits - Abdominal General gastrointestinal: Present: soft, non-tender, non-distended, normal bowel sounds Female genitourinary: Present: deferred - Rectal Rectal Exam: deferred - Integumentary Integumentary: Present: clear - Musculoskeletal Musculoskeletal: strength equal bilaterally - Psychiatric Psychiatric: appropriate mood/affect, intact judgment & insight - Neurologic Neurologic: CNII-XII intact Results - Labs CBC & Chem 7: 03/02/16 12:49 03/01/16 06:04 Assessment and Plan 1. Isolated episodes of elevated blood pressure-blood pressure is now within the normal range. No need for initiation of antihypertensive medication. Patient advised to follow-up with her primary care for monitoring of blood pressure. She was also advised to reduce her salt intake, increase physical activity in the form of exercise and weight loss. Thank for for consulting us. No further recommendations at this time. We'll sign off
[2016-03-03 17:58] VITALS: BP 149/73
--- NOTE | 2016-03-03 21:13 | Discharge Summary ---
DISCHARGE DIAGNOSIS: Small bowel obstruction secondary to incarcerated spigelian hernia involving small bowel. PROCEDURE WHILE IN HOSPITAL EMERGENCY: Diagnostic laparoscopy with reduction of incarcerated bowel and repair of ventral hernia with mesh. HOSPITAL COURSE: The patient is a pleasant 55-year-old female who presented to Emergency Room with recent onset of abdominal pain. CT scan of the abdomen was performed, which revealed an incarcerated spigelian hernia. The patient's past medical history was pertinent for asthma. No previous abdominal surgeries. The patient was thus admitted at this time and underwent emergency surgical repair as described. The patient's postoperative course has been essentially unremarkable. She was kept n.p.o. for the first 24 hours and subsequently started on a clear liquid diet. Currently, the patient is postop day #3, afebrile and feeling well. Her abdomen is soft and nontender. Bowel sounds are present. She has been tolerating a diet without incident. Lab work is essentially within normal limits. The patient will thus be advanced this morning to a full-liquid diet and will tentatively be discharged today if his diet is well tolerated and she is cleared by the hospitalist. Hospitalist consultation has been made due to persistent hypertension while the patient has been here in the hospital. The patient has been instructed to call me immediately if she has any evidence of nausea, vomiting, abdominal pain, or fever. If not calling, the patient will advance herself to a regular diet at home in the morning and follow up in the office on Saturday. JOB# [id number] WAQAR/KIERA
== END 2016-03-03 17:58 | disposition home or self-care (01) | DRG 355 ==
LOC: ED 17:48 → OR 03-01 02:04 → 2B-SURG 03-01 02:29
PROVIDERS: ADMIT Surgery; ATTEND Surgery
PROC: 0WUF4JZ Supplement Abdominal Wall with Synthetic Substitute, Percutaneous Endoscopic Approach (ICD-10-PCS; principal; 2016-03-01)
DX: K43.6 Other and unspecified ventral hernia with obstruction, without gangrene (principal); K57.90 Diverticulosis of intestine, part unspecified, without perforation or abscess without bleeding; J45.909 Unspecified asthma, uncomplicated; E66.9 Obesity, unspecified; Z68.32 Body mass index [BMI] 32.0-32.9, adult
CPT/HCPCS: 36415; 71010; 74177; 80048; 80074; 81001; 82140; 82150; 83690; 84484; 85007; 85025; 85027; 93005; 93010; 94760; C1781; J0330; J1100; J1170; J1885; J2270; J2405; J2543; J2704; J2710; J2765; J7030; J7040; J7120; Q9967

== ENCOUNTER 2019-11-24 08:08 | Outpatient (CLI) | payer BC ==
[2019-11-24 08:39] LABS: Hematocrit 43.9 % (30.3-42.9); Hemoglobin 14.7 gm/dl (10.1-14.3); Mean Corpuscular HGB Conc 34 % (30-34); Mean Corpuscular Volume 89 fl (79-97); Platelet Count 297 K/mm3 (140-440); Red Blood Count 4.93 M/mm3 (3.65-5.03); Red Cell Distribution Width 13.7 % (13.2-15.2)
[2019-11-24 09:49] LABS: Chol/HDL Ratio 3.75 %; HDL Cholesterol 58 mg/dL (40-59); LDL Cholesterol,Direct 151 mg/dL (50-130)
[2019-11-24 10:18] LABS: Hemolysis Index 0
[2019-11-24 11:09] LABS: Albumin 4.4 g/dL (3.9-5)
[2019-11-24 15:27] LABS: BUN/Creatinine Ratio 22
[2019-11-24 15:28] LABS: Alanine Aminotransferase 21 units/L (7-56); Blood Urea Nitrogen 20 mg/dL (7-17); Calcium 9.8 mg/dL (8.4-10.2)
[2019-11-27 14:14] LABS: Vitamin D, 25-OH, D2 <4 ng/mL
== END 2019-11-24 08:09 | disposition home or self-care (01) ==
LOC: LAB 08:08
PROVIDERS: ATTEND Internal Medicine
DX: Z00.00 Encounter for general adult medical examination without abnormal findings (principal); R53.83 Other fatigue; E78.00 Pure hypercholesterolemia, unspecified; E11.65 Type 2 diabetes mellitus with hyperglycemia; E55.9 Vitamin D deficiency, unspecified
CPT/HCPCS: 36415; 80053; 80061; 82306; 83036; 84443; 85027

== ENCOUNTER 2020-06-02 12:19 | Outpatient (CLI) | payer BC ==
[2020-06-02 13:02] LABS: Alanine Aminotransferase 19 units/L (7-56); Albumin 4.2 g/dL (3.9-5); BUN/Creatinine Ratio 19; Blood Urea Nitrogen 15 mg/dL (7-17); Calcium 9.4 mg/dL (8.4-10.2); Chol/HDL Ratio 3.49 %; HDL Cholesterol 61 mg/dL (40-59); Hemolysis Index 76; LDL Cholesterol,Direct 144 mg/dL (50-130)
[2020-06-02 13:36] LABS: Hematocrit 44.6 % (30.3-42.9); Hemoglobin 14.9 gm/dl (10.1-14.3); Mean Corpuscular HGB Conc 33 % (30-34); Mean Corpuscular Volume 88 fl (79-97); Platelet Count 304 K/mm3 (140-440); Red Blood Count 5.05 M/mm3 (3.65-5.03)
== END 2020-06-02 12:20 | disposition home or self-care (01) ==
LOC: LAB 12:19
PROVIDERS: ATTEND Internal Medicine
DX: Z00.00 Encounter for general adult medical examination without abnormal findings (principal); R53.83 Other fatigue; R78.2 Finding of cocaine in blood; E11.65 Type 2 diabetes mellitus with hyperglycemia
CPT/HCPCS: 36415; 80053; 80061; 83036; 84443; 85027

== ENCOUNTER 2021-11-08 08:57 | Outpatient (CLI) | payer BC ==
--- NOTE | 2021-11-08 10:55 | XRay Report ---
BILATERAL KNEES AP STANDING INDICATION: M25.562 PAIN IN LEFT KNEE. COMPARISON: None. IMPRESSION: AP standing and lateral views of the knees in flexion are presented. No osseous abnorma lity is detected. There is minimal medial compartment joint space narrowing bilaterally. No advanced degenerative changes. The soft tissues are unremarkable. Signer Name: Juan Pablo Arnold Jr, MD Signed: 11/08/2021 10:51 AM Workstation Name: [id number]
== END 2021-11-08 08:58 | disposition home or self-care (01) ==
LOC: XRAY 08:57
PROVIDERS: ATTEND Orthopaedic Surgery
DX: M25.562 Pain in left knee (principal)
CPT/HCPCS: 73565